=== PATIENT | male | born 1970 | race African-American/Black ===

== ENCOUNTER 2021-03-30 08:09 | Emergency (ER) | payer SELFPAY ==
[~2021-03-30] VITALS: Ht 177.8 cm; Wt 82.0 kg
[2021-03-30 09:08] VITALS: BP 129/78
[2021-03-30 09:09] LABS: BASOPHILS % 0.3 % (0.0-2.0); EOSINOPHILS % 2.7 % (0.0-5.0); HEMATOCRIT. 42.3 % (42.0-52.0); HEMOGLOBIN. 13.5 g/dL (14.0-18.0); LYMPHOCYTES % 18.8 % (20.0-50.0); MEAN CORPUSCULAR HEMOGLOBIN 23.6 pg (28.0-32.0); MEAN CORPUSCULAR VOLUME 74.2 fL (80.0-94.0); MEAN PLATELET VOLUME 7.5 fl (7.4-10.4); MONOCYTES % 7.9 % (2.0-8.0); NEUTROPHILS % 70.3 % (40.0-76.0); PLATELET 250 x1000/uL (130-400)
[2021-03-30 09:16] LABS: CHLORIDE 109 mEq/L (98-107)
[2021-03-30 09:21] LABS: ETHANOL BLOOD < 10 mg/dL
== END 2021-03-30 13:29 | disposition home or self-care (01) ==
LOC: ER 08:09
DX: F15.988 Other stimulant use, unspecified with other stimulant-induced disorder (principal); Z59.00 Homelessness unspecified
CPT/HCPCS: 36415; 80053; 80307; 80320; 80329; 82962; 85025; 93005; 99284; G0480